=== PATIENT | male | born 1960 | race Caucasian/White ===

== ENCOUNTER 2018-09-30 12:25 | Day surgery (SDC) | payer BC ==
[~2018-09-30] VITALS: Ht 185.4 cm; Wt 93.8 kg
[~2018-09-30 12:25] MED LIST: ASPI81EC PO; CETI10 PO; CETI5 PO; CYCL10 PO; FLONASE SENSIM5.9 ML; HYDACE5 PO; HYDMOR2 PO; LISI5 PO; LOSA50; LOVAZA PO; MELATONIN5 M1; METO50ER PO; OMEG1CAP30; OMEP20ER PO; PRAV20; SOMA350 MG; TAMS.4ER PO; TYLENOL PM EX-1 EAC1
[2018-09-30] MEDS ORDERED: BENADRYL25 MG (12:45)
== END 2018-09-30 14:54 | disposition home or self-care (01) ==
LOC: ORSCSDS 12:25
PROVIDERS: Student in an Organized Health Care Education/Training Program
PROC: 0DBH8ZX Excision of Cecum, Via Natural or Artificial Opening Endoscopic, Diagnostic (ICD-10-PCS; principal; 2018-09-30 13:45)
PROC: 0DBN8ZX Excision of Sigmoid Colon, Via Natural or Artificial Opening Endoscopic, Diagnostic (ICD-10-PCS; principal; 2018-09-30 13:45)
PROC: 0DBK8ZX Excision of Ascending Colon, Via Natural or Artificial Opening Endoscopic, Diagnostic (ICD-10-PCS; principal; 2018-09-30 13:45)
DX: Z12.11 Encounter for screening for malignant neoplasm of colon (principal); D12.0 Benign neoplasm of cecum; D12.2 Benign neoplasm of ascending colon; D12.5 Benign neoplasm of sigmoid colon; K64.8 Other hemorrhoids; I10 Essential (primary) hypertension; E78.5 Hyperlipidemia, unspecified; K21.9 Gastro-esophageal reflux disease without esophagitis; Z79.899 Other long term (current) drug therapy; Z79.82 Long term (current) use of aspirin
CPT/HCPCS: 88305; J2704; J7120

== ENCOUNTER 2022-12-27 07:39 | Day surgery (SDC) | payer BC ==
[~2022-12-27] VITALS: Ht 188 cm; Wt 92.9 kg
[2022-12-27] VITALS (16 sets, daily range): BP systolic 91–138; BP diastolic 58–91
[~2022-12-27 07:39] MED LIST changes: +BENADRYL25 MG; +MONT10T PO; +PROM25 PO
[2022-12-27] MEDS ORDERED: LORA10ER PO (07:57)
--- NOTE | 2022-12-27 08:27 | NUR ---
12/27/22 0827 Deyanira Hoff HISTORY, CHART, MEDICATIONS AND ALLERGIES REVIEWED BEFORE START OF PROCEDURE. PATIENT CONFIRMS NPO STATUS AND AGREES WITH SCHEDULED PROCEDURE. 3-LEAD EKG REVIEWED WITH PHYSICIAN PRIOR TO START OF PROCEDURE. MONITOR INTACT WITH CONTINUOUS PULSE OXIMETRY,CAPNOGRAPHY, 3-LEAD EKG, INTERMITTENT BP. SUPPLEMENTAL O2 TO BE TITRATED THROUGHOUT PROCEDURE TO MAINTAIN O2 SATURATION ABOVE 90%. PATIENT DETERMINED TO BE ASA APPROPRIATE FOR PROPOFOL SEDATION PRIOR TO START OF PROCEDURE BY DR. SHELTON.
--- NOTE | 2022-12-27 08:54 | NUR ---
REPORT RECIEVED. PT SITTING UP IN BED TOLERATING PO FLUIDS. DR SHELTON AT BEDSIDE. VSS ON ROOM AIR
--- NOTE | 2022-12-27 09:12 | NUR ---
Patient up to Ambulate independently. Gait steady. Discharge instructions reviewed with patient. Patient verbalizes understanding. Copy given to patient to take home. Discharged via wheelchair to private car for ride home.
== END 2022-12-27 09:13 | disposition home or self-care (01) ==
LOC: ORSCMMR 07:39 → ORD 08:30 → ORSCMMR 09:13
PROVIDERS: Internal Medicine Gastroenterology
PROC: 0DBL8ZX Excision of Transverse Colon, Via Natural or Artificial Opening Endoscopic, Diagnostic (ICD-10-PCS; principal; 2022-12-27 08:30)
PROC: 0DBN8ZX Excision of Sigmoid Colon, Via Natural or Artificial Opening Endoscopic, Diagnostic (ICD-10-PCS; principal; 2022-12-27 08:30)
DX: Z12.11 Encounter for screening for malignant neoplasm of colon (principal); Z86.010 Personal history of colon polyps; D12.3 Benign neoplasm of transverse colon; D12.5 Benign neoplasm of sigmoid colon; K63.5 Polyp of colon; K57.30 Diverticulosis of large intestine without perforation or abscess without bleeding; Z86.73 Personal history of transient ischemic attack (TIA), and cerebral infarction without residual deficits; K21.9 Gastro-esophageal reflux disease without esophagitis; J45.909 Unspecified asthma, uncomplicated; E78.00 Pure hypercholesterolemia, unspecified; I10 Essential (primary) hypertension; Z79.82 Long term (current) use of aspirin; Z79.899 Other long term (current) drug therapy
CPT/HCPCS: 88305; J2704; J7120